=== PATIENT | male | born 1985 | race African-American/Black ===

== ENCOUNTER 2021-10-12 00:01 | Emergency (ER) | payer MEDICAID ==
[~2021-10-12] VITALS: Ht 172.7 cm; Wt 90.3 kg
[2021-10-12 03:18] VITALS: BP 122/77
[2021-10-12] MEDS ORDERED: HALOPERIDOL LACTATE 5MG/ML VIAL IM ONE (03:45)
== END 2021-10-12 03:51 | disposition left against medical advice (07) ==
LOC: ER 00:01
DX: R11.2 Nausea with vomiting, unspecified (principal); F12.90 Cannabis use, unspecified, uncomplicated; I49.8 Other specified cardiac arrhythmias; Z98.890 Other specified postprocedural states
CPT/HCPCS: 93005; 99283; J1630